=== PATIENT | female | born 1990 | race Hispanic/Latino ===

== ENCOUNTER 2021-12-09 12:27 | Outpatient (CLI) | payer OTHER ==
[~2021-12-09 12:27] MED LIST: ISOVUE-370 76% 1 ML ONE
== END 2021-12-09 12:28 | disposition home or self-care (01) ==
LOC: BICCT 12:27
PROVIDERS: ATTEND Physician Assistant
DX: R10.31 Right lower quadrant pain (principal)
CPT/HCPCS: 74177

== ENCOUNTER 2023-05-01 08:43 | Outpatient (CLI) | payer BC | END 2023-05-01 08:44 | disposition home or self-care (01) | LOC: BICMAMMO 08:43 | PROVIDERS: ATTEND Family Medicine | DX: N63.20 Unspecified lump in the left breast, unspecified quadrant (principal) | CPT/HCPCS: 77066; G0279 ==